=== PATIENT | female | born 1945 | race Caucasian/White ===

== ENCOUNTER 2021-07-19 09:05 | Emergency (ER) | payer MEDICARE, BC ==
[2021-07-19] MEDS ORDERED: Sodium Chloride 0.9% 10 ML Syringe FLUSH PRN ×2 (09:17→09:26)
[2021-07-19] MEDS ORDERED: Ondansetron 4 MG/2 ML SDV IVPUSH ONE (09:17)
[2021-07-19] MEDS ORDERED: HYDROmorphone 0.5 MG/0.5 ML Syringe IVPUSH ONE ×2 (09:18→12:07)
[2021-07-19] MEDS ORDERED: Iopamidol 612 MG/ML 100 ML Bottle IVPUSH ONE (09:26)
[2021-07-19] MEDS ORDERED: Diatrizoate Meglumine/Diatrizoate Sodium 37% 120 ML Bottle PO ONE (09:26)
[2021-07-19] MEDS ORDERED: Sodium Chloride 0.9% 1,000 ML IV SCH (09:30)
--- NOTE | 2021-07-19 10:01 | EDM.PDOC ---
ED HPI GENERAL MEDICAL PROBLEM - General Chief Complaint: Abdominal Pain Stated Complaint: [facility] Time Seen by Provider: 07/19/21 09:08 Source of Information: Reports: Patient, EMS History Limitations: Reports: No Limitations - History of Present Illness INITIAL COMMENTS - FREE TEXT/NARRATIVE: The patient presents by [facility] with intercept by [facility] for lower abdominal pain. The patient said she woke up feeling fine. She went to the bathroom and started having dysuria and then she developed lower abdominal pain. She has no nausea or vomiting. She has some diarrhea but that is normal for her. She has no fever, chills, cough, chest pain, or shortness of breath. She still has her appendix and gallbladder. EMS gave her 25mcg IV of f entanyl. Onset: Sudden Duration: Hour(s): Location: Reports: Abdomen Quality: Reports: Sharp Severity: Moderate Improves with: Reports: None Worsens with: Reports: None Associated Symptoms: Reports: No Other Symptoms Bilateral Lower Abdomen Pain Score (Numeric/FACES): 6 - Related Data Allergies Allergy/AdvReac Type Severity Reaction Status Date / Time cephalexin [From Keflex] Allergy Severe Facial Verified 07/19/21 09:19 Swelling Penicillins Allergy Intermediate Hives Verified 07/19/21 11:35 Home Meds: Home Meds Aspirin [Halfprin] 81 mg PO QAM 07/19/21 [History] Budesonide [Budesonide EC] 9 mg PO QAM 07/19/21 [History] Calcium Carbonate [Calcium] 500 mg PO QAM 07/19/21 [History] Cholecalciferol (Vitamin D3) [Vitamin D3] 6,000 units PO QAM 07/19/21 [History] Latanoprost 1 drop EYEBOTH QA 07/19/21 [History] Olmesartan Medoxomil [Benicar] 20 mg PO QAM 07/19/21 [History] Simvastatin 40 mg PO QPM 07/19/21 [History] Timolol [Betimol] 1 drop EYEBOTH QA 07/19/21 [History] Vitamin B Complex 1 cap PO QAM 07/19/21 [History] ED ROS GENERAL - Review of Systems Review Of Systems: See Below Constitutional: Reports: No Symptoms HEENT: Reports: No Symptoms Respiratory: Reports: No Symptoms Cardiovascular: Reports: No Symptoms Endocrine: Reports: No Symptoms GI/Abdominal: Reports: Abdominal Pain, Diarrhea. Denies: Nausea, Vomiting : Reports: No Symptoms Musculoskeletal: Reports: No Symptoms ED EXAM, GI/ABD - Physical Exam Exam: See Below Exam Limited By: No Limitations General Appearance: Alert, No Apparent Distress Ears: Normal External Exam Nose: Normal Inspection Head: Atraumatic, Normocephalic Neck: Normal Inspection Respiratory/Chest: No Respiratory Distress, Lungs Clear, Normal Breath Sounds Cardiovascular: Regular Rate, Rhythm, No Edema, No Murmur GI/Abdominal Exam: Soft, No Organomegaly, No Mass, Tender (Moderate generalized tenderness) Course - Vital Signs Last Recorded V/S: Last Vital Signs Temp 96.9 F 07/19/21 09:10 Pulse 73 07/19/21 09:10 Resp 18 07/19/21 09:10 BP 177/85 H 07/19/21 09:10 Pulse Ox 98 07/19/21 09:10 - Orders/Labs/Meds Orders: Active Orders 24 hr Category Date Time Status Peripheral IV Care [RC] . DIRECTED Care 07/19/21 09:17 Active CORONAVIRUS COVID-19 SHARMILA [MOLEC] Stat Lab 07/19/21 12:09 Ordered CULTURE URINE [MREF] Stat Lab 07/19/21 11:50 Ordered Levofloxacin/Dextrose 5%-Water [Levaquin in D5W 500 MG/ Med 07/19/21 12:00 Active 100 ML] 500 mg Premix Bag 1 bag IV ONETIME Sodium Chloride 0.9% [Normal Saline] 1,000 ml Med 07/19/21 09:30 Active IV ASDIRECTED Sodium Chloride 0.9% [Saline Flush] Med 07/19/21 09:17 Active 10 ml FLUSH ASDIRECTED PRN Sodium Chloride 0.9% [Saline Flush] Med 07/19/21 09:26 Active 10 ml FLUSH ONETIME PRN metroNIDAZOLE/Normal Saline [Flagyl in NS 500 MG/100 ML Med 07/19/21 12:00 Active ] 500 mg Premix Bag 1 bag IV ONETIME ED Antiemetic Medication Reflex [OM.PC] Stat Oth 07/19/21 09:17 Ordered Peripheral IV Insertion Adult [OM.PC] Stat Oth 07/19/21 09:17 Ordered Medication Orders Sodium Chloride (Normal Saline) 1,000 mls @ 125 mls/hr IV ASDIRECTED BRANDON Last Admin: 07/19/21 09:30 Dose: 125 mls/hr Documented by: MAGGIE Metronidazole 500 mg/ Premix 100 mls @ 100 mls/hr IV ONETIME ONE Stop: 07/19/21 12:59 Levofloxacin/Dextrose 500 mg/ (Premix) 100 mls @ 100 mls/hr IV ONETIME ONE Stop: 07/19/21 12:59 Sodium Chloride (Sodium Chloride 0.9% 10 Ml Syringe) 10 ml FLUSH ASDIRECTED PRN PRN Reason: Keep Vein Open Last Admin: 07/19/21 09:31 Dose: 10 ml Documented by: JUANITA Sodium Chloride (Sodium Chloride 0.9% 10 Ml Syringe) 10 ml FLUSH ONETIME PRN PRN Reason: IV FLUSH Last Admin: 07/19/21 11:09 Dose: 10 ml Documented by: VIRGIL Labs: Laboratory Tests 07/19/21 07/19/21 07/19/21 Range/Units 09:45 10:20 10:20 WBC 6.85 (3.98-10.04) K/mm3 RBC 4.13 (3.98-5.22) M/mm3 Hgb 13.3 (11.2-15.7) gm/dl Hct 41.3 (34.1-44.9) % MCV 100.0 H (79.4-94.8) fl MCH 32.2 (25.6-32.2) pg MCHC 32.2 (32.2-35.5) g/dl RDW Std Deviation 54.3 H (36.4-46.3) fL Plt Count 241 (182-369) K/mm3 MPV 9.1 L (9.4-12.3) fl Neut % (Auto) 82.5 H (34.0-71.1) % Lymph % (Auto) 14.5 L (19.3-51.7) % Park % (Auto) 2.6 L (4.7-12.5) % Eos % (Auto) 0.3 L (0.7-5.8) Baso % (Auto) 0.0 L (0.1-1.2) % Neut # (Auto) 5.65 (1.56-6.13) K/mm3 Lymph # (Auto) 0.99 L (1.18-3.74) K/mm3 Park # (Auto) 0.18 L (0.24-0.36) K/mm3 Eos # (Auto) 0.02 L (0.04-0.36) K/mm3 Baso # (Auto) 0.00 L (0.01-0.08) K/mm3 Sodium 139 (136-145) mEq/L Potassium 3.1 L (3.5-5.1) mEq/L Chloride 105 (98-107) mEq/L Carbon Dioxide 20 L (21-32) mEq/L Anion Gap 17.1 H (5-15) BUN 16 (7-18) mg/dL Creatinine 0.7 (0.55-1.02) mg/dL Est Cr Clr Drug Dosing 53.21 mL/min Estimated GFR (MDRD) > 60 (>60) mL/min BUN/Creatinine Ratio 22.9 H (14-18) Glucose 95 (70-99) mg/dL Calcium 8.7 (8.5-10.1) mg/dL Total Bilirubin 0.7 (0.2-1.0) mg/dL AST 24 (15-37) U/L ALT 45 (14-59) U/L Alkaline Phosphatase 73 (46-116) U/L Total Protein 6.6 (6.4-8.2) g/dl Albumin 3.6 (3.4-5.0) g/dl Globulin 3.0 gm/dL Albumin/Globulin Ratio 1.2 (1-2) Lipase 93 (73-393) U/L Urine Color Shama H (Yellow) Urine Appearance Cloudy H (Clear) Urine pH 6.0 (5.0-8.0) Ur Specific [place] 1.020 (1.005-1.030) Urine Protein 2+ H (Negative) Urine Glucose (UA) Negative (Negative) Urine Ketones Trace H (Negative) Urine Occult Blood Trace-intact H (Negative) Urine Nitrite Positive H (Negative) Urine Bilirubin 1+ H (Negative) Urine Urobilinogen 1.0 (0.2-1.0) Ur Leukocyte Esterase 2+ H (Negative) Urine RBC 0-5 (0-5) /hpf Urine WBC >100 H (0-5) /hpf Ur Epithelial Cells 0-5 (0-5) /hpf Urine Bacteria Few (FEW) /hpf Urine Mucus Few (FEW) /hpf Meds: Medications Generic Name Dose Route Start Last Admin Trade Name Christina PRN Reason Stop Dose Admin Sodium Chloride 1,000 mls @ 125 mls/hr 07/19/21 09:30 07/19/21 09:30 Normal Saline IV 125 mls/hr ASDIRECTED BRANDON Administration Metronidazole 500 mg/ Premix 100 mls @ 100 mls/hr 07/19/21 12:00 IV 07/19/21 12:59 ONETIME ONE Levofloxacin/Dextrose 500 mg/ 100 mls @ 100 mls/hr 07/19/21 12:00 Premix IV 07/19/21 12:59 ONETIME ONE Sodium Chloride 10 ml 07/19/21 09:17 07/19/21 09:31 Sodium Chloride 0.9% 10 Ml Syringe FLUSH 10 ml ASDIRECTED PRN Administration Keep Vein Open Sodium Chloride 10 ml 07/19/21 09:26 07/19/21 11:09 Sodium Chloride 0.9% 10 Ml Syringe FLUSH 10 ml ONETIME PRN Administration IV FLUSH Discontinued Medications Generic Name Dose Route Start Last Admin Trade Name Christina PRN Reason Stop Dose Admin Diatrizoate Meglum/Diatrizoate Sod 120 ml 07/19/21 09:26 07/19/21 11:09 Diatrizoate Meglumine/Diatrizoate Sodium 37% 120 Ml Bottle PO 07/19/21 09:27 30 ml ONETIME ONE Administration Hydromorphone HCl 0.5 mg 07/19/21 09:18 07/19/21 09:31 Hydromorphone 0.5 Mg/0.5 Ml Syringe IVPUSH 07/19/21 09:19 0.5 mg ONETIME ONE Administration Hydromorphone HCl 0.5 mg 07/19/21 12:07 Hydromorphone 0.5 Mg/0.5 Ml Syringe IVPUSH 07/19/21 12:08 ONETIME ONE Iopamidol 100 ml 07/19/21 09:26 07/19/21 11:09 Iopamidol 612 Mg/Ml 100 Ml Bottle IVPUSH 07/19/21 09:27 100 ml ONETIME ONE Administration Ondansetron HCl 4 mg 07/19/21 09:17 07/19/21 09:31 Ondansetron 4 Mg/2 Ml Sdv IVPUSH 07/19/21 09:18 4 mg ONETIME ONE Administration - Re-Assessments/Exams Free Text/Narrative Re-Assessment/Exam: 07/19/21 10:00 I ordered an IV NS at 125mL/hr, zofran 4mg IV, dilaudid 0.5mg IV, labs, UA and a CT of her abdomen and pelvis with IV and oral contrast. 07/19/21 11:54 Her CBC looks good. Her K was low at 3.1. Her anion gap was elevated at 17.1. Her lipase was negative. Her UA shows a UTI. 07/19/21 12:[address] shows small amount of free air underneath the right hemidiaphragm. Gas dilated cecum suspicious for cecal volvulus. This may be the etiology of the free air. Dilated small bowel loops are seen. Diffuse wall thickening is seen within the duodenum and jejunum which could be vascular in etiology versus change from infection. I am told we have no beds right now and cannot accept the patient. I called [facility] in [place] and talked with Dr Scott the learning consultant surgeon and she accepted the patient. She did want levaquin and flagyl started. I have ordered them. Departure - Departure Time of Disposition: 12:20 Disposition: DC/Tfer to Acute Hospital 02 Condition: Serious Clinical Impression: Cecal volvulus, Perforated abdominal viscus - Discharge Information Referrals: Tatyana Lu MD [Primary Care Provider] - Forms: ED Department Discharge Sepsis Event Note (ED) - Evaluation Sepsis Screening Result: No Definite Risk - Focused Exam Vital Signs: Vital Signs Temp Pulse Resp BP Pulse Ox 07/19/21 09:10 96.9 F 73 18 177/85 H 98 - My Orders Last 24 Hours: My Active Orders 07/19/21 09:17 Peripheral IV Care [RC] . DIRECTED Sodium Chloride 0.9% [Saline Flush] 10 ml FLUSH ASDIRECTED PRN ED Antiemetic Medication Reflex [OM.PC] Stat Peripheral IV Insertion Adult [OM.PC] Stat 07/19/21 09:26 Sodium Chloride 0.9% [Saline Flush] 10 ml FLUSH ONETIME PRN 07/19/21 09:30 Sodium Chloride 0.9% [Normal Saline] 1,000 ml IV ASDIRECTED 07/19/21 11:50 CULTURE URINE [MREF] Stat 07/19/21 12:00 Levofloxacin/Dextrose 5%-Water [Levaquin in D5W 500 MG/100 ML] 500 mg Premix Bag 1 bag IV ONETIME metroNIDAZOLE/Normal Saline [Flagyl in NS 500 MG/100 ML] 500 mg Premix Bag 1 bag IV ONETIME 07/19/21 12:09 CORONAVIRUS COVID-19 SHARMILA [MOLEC] Stat - Assessment/Plan Last 24 Hours: My Active Orders 07/19/21 09:17 Peripheral IV Care [RC] . DIRECTED Sodium Chloride 0.9% [Saline Flush] 10 ml FLUSH ASDIRECTED PRN ED Antiemetic Medication Reflex [OM.PC] Stat Peripheral IV Insertion Adult [OM.PC] Stat 07/19/21 09:26 Sodium Chloride 0.9% [Saline Flush] 10 ml FLUSH ONETIME PRN 07/19/21 09:30 Sodium Chloride 0.9% [Normal Saline] 1,000 ml IV ASDIRECTED 07/19/21 11:50 CULTURE URINE [MREF] Stat 07/19/21 12:00 Levofloxacin/Dextrose 5%-Water [Levaquin in D5W 500 MG/100 ML] 500 mg Premix Bag 1 bag IV ONETIME metroNIDAZOLE/Normal Saline [Flagyl in NS 500 MG/100 ML] 500 mg Premix Bag 1 bag IV ONETIME 07/19/21 12:09 CORONAVIRUS COVID-19 SHARMILA [MOLEC] Stat
--- NOTE | 2021-07-19 11:42 | CT ---
CT abdomen and pelvis Technique: Multiple axial sections were obtained from above the dome of the diaphragm inferiorly through the pubic symphysis. Intravenous and oral contrast has been given. Delayed images were obtained through the pelvis. Reconstructed coronal and sagittal images were obtained. Comparison: No prior CT abdomen or pelvis study is available. Findings: There is a mild amount of free air being seen beneath the hemidiaphragm on the right side. Visualized lung bases show nothing acute. Liver contains no focal parenchymal abnormality. Contrast is noted within the distal esophagus compatible with reflux. Spleen size is normal. Adrenal glands show no nodule. Kidneys show symmetric contrast enhancement. Very small low density finding is noted within the left kidney measuring 5 mm which is most likely due to a small cyst. Abdominal aorta shows atherosclerotic change with no aneurysm. There is opacification of the celiac axis and superior mesenteric arteries without any evidence of focal occlusion. Inferior mesenteric artery is also patent. No retroperitoneal adenopathy is seen. No pelvic mass or adenopathy is seen. Pancreas appears within normal limits. There is prominent bowel wall thickening being seen within the duodenum and jejunum. More distal jejunum and ileum show mild dilatation. There is air being seen within the wall of the thickened jejunum compatible with disruption of the bowel wall. Cecum lies within the right upper abdomen. Slight inflammatory change is seen. Findings are suggestive of a mild cecal volvulus. Cecum is gas-filled and dilated up to 8.3 cm. Appendix is not visualized. There may be perforation of the cecum given the free air. Diffuse diverticuli are seen throughout the colon without findings of diverticulitis. Delayed images show contrast within the distal ureters and bladder. Right hip pinning is noted. Mild degenerative change is seen within the spine most prominent at L3-4. Impression: 1. Small amount of free air underneath the right hemidiaphragm. 2. Gas dilated cecum suspicious for cecal volvulus. This may be the etiology of the free air. 3. Dilated small bowel loops are seen. Diffuse wall thickening is seen within the duodenum and jejunum which could be vascular in etiology versus change from infection. Diagnostic code #5
[2021-07-19] MEDS ORDERED: metroNIDAZOLE/Normal Saline 500 MG in Premix Bag 1 BAG IV ONE (12:00)
[2021-07-19] MEDS ORDERED: Levofloxacin/Dextrose 5%-Water 500 MG in Premix Bag 1 BAG IV ONE (12:00)
[2021-07-19] MEDS ORDERED: fentaNYL 100 MCG/2 ML SDV ONE (12:31)
[2021-07-19] MEDS ORDERED: fentaNYL 100 MCG/2 ML SDV IVPUSH ONE (12:31)
== END 2021-07-19 12:45 ==
LOC: JD.ED 09:05
DX: K56.2 Volvulus (principal); Z88.0 Allergy status to penicillin; Z88.1 Allergy status to other antibiotic agents; Z79.82 Long term (current) use of aspirin; Z79.899 Other long term (current) drug therapy; Z20.822 Contact with and (suspected) exposure to COVID-19
CPT/HCPCS: 36415; 74177; 74177-26; 80053; 81001; 83690; 85025; 87086; 87088; 87186; 96365; 96368; 96375; 96376; 99284; 99285-25; J1170; J1956; J2405; J3010; J3490; J7030; Q9963; Q9967; U0002

== ENCOUNTER 2021-11-10 15:32 | Inpatient (IN) | payer MEDICARE, BC ==
[2021-11-10] MEDS ORDERED: Docusate Sodium 100 MG Cap PO PRN (16:25)
[2021-11-10] MEDS ORDERED: Ondansetron 4 MG Tab.DIS PO PRN (16:25)
--- NOTE | 2021-11-10 16:42 | PCM.HP.2 ---
H&P History of Present Illness - General Date of Service: 11/10/21 Admit Problem/Dx: Admission Diagnosis/Problem Admission Diagnosis/Problem Dehydration Source of Information: Patient History Limitations: Reports: No Limitations - History of Present Illness Initial Comments - Free Text/Narative: The patient was seen in my office today for a routine visit for colostomy rever jose a. She complained that she has been fatigues. [place] I obtained CBC and chemistry. She reported that her colostomy output has been liquid for a few days. No fevers or chills. CMP : Glu 151, BUN 37, Creat 2.35, Na 132, K 5.2, Cl 102, CO2 15, AG 22, Calc 11.3, Tprot 7.9, Alb 4.8, Ast 66, ALT 86, Tbili 0.6. CBC: WBC 10.2, Hgb 16.5, Plat 125 Looking back in Aug 03, 2021, her creat was 0.66. Due to PIOTR and dehydration i asked that she be admitted for hydration. Onset of Symptoms: Reports: Gradual Duration of Symptoms: Reports: Day(s): (7) Location: Reports: Abdomen Improves with: Reports: None Worsens with: Reports: None Context: Reports: Sick Contact Associated Symptoms: Reports: Loss of Appetite - Related Data Allergies/Adverse Reactions: Allergies Allergy/AdvReac Type Severity Reaction Status Date / Time cephalexin [From Keflex] Allergy Severe Facial Verified 07/19/21 09:19 Swelling Penicillins Allergy Intermediate Hives Verified 07/19/21 11:35 Home Medications: Home Meds Aspirin [Halfprin] 81 mg PO QAM 07/19/21 [History] Budesonide [Budesonide EC] 9 mg PO QAM 07/19/21 [History] Calcium Carbonate [Calcium] 500 mg PO QAM 07/19/21 [History] Cholecalciferol (Vitamin D3) [Vitamin D3] 6,000 units PO QAM 07/19/21 [History] Latanoprost 1 drop EYEBOTH QAM 07/19/21 [History] Olmesartan Medoxomil [Benicar] 20 mg PO QAM 07/19/21 [History] Simvastatin 40 mg PO QPM 07/19/21 [History] Timolol [Betimol 0.25% O/S 5 ML] 1 drop EYEBOTH QAM 07/19/21 [History] Vitamin B Complex 1 cap PO [facility] 07/19/21 [History] Past Medical History HEENT History: Reports: Cataract, Glaucoma Gastrointestinal History: Reports: Diverticulosis, Inflammatory Bowel Disease Musculoskeletal History: Reports: None Psychiatric History: Reports: Depression Other Psychiatric History: Hx of it years ago Hematologic History: Reports: Anemia - Infectious Disease History Infectious Disease History: Reports: Chicken Pox, Measles - Past Surgical History HEENT Surgical History: Reports: Cataract Surgery, Laser Surgery Other HEENT Surgeries/Procedures: Cataract and glaucoma surgeries [id number] GI Surgical History: Reports: Colostomy Other GI Surgeries/Procedures: Ostomy placed Jul 2021 Female Surgical History: Reports: Tubal Ligation Other Female Surgeries/Procedures: 30 plus years ago Other Musculoskeletal Surgeries/Procedures:: Right femur fracture with jon placement 2014 Social & Family History - Family History HEENT: Reports: None Cardiac: Reports: Hypertension Other Cardiac Family History: Mother had multiple stroke and HTN. Father had HTN - Tobacco Use Tobacco Use Status *Q: Former Tobacco User Years of Tobacco use: 30 Used Tobacco, but Quit: Yes Month/Year Tobacco Last Used: 6 yrs ago Second Hand Smoke Exposure: No - Caffeine Use Caffeine Use: Reports: Coffee - Alcohol Use Days Per Week of Alcohol Use: 7 Number of Drinks Per Day: 1 Total Drinks Per Week: 7 Date of Last Drink: 11/09/21 Time of Last Drink: 21:00 - Recreational Drug Use Recreational Drug Use: No H&P Review of Systems - Review of Systems: Review Of Systems: See Below General: Reports: No Symptoms HEENT: Reports: No Symptoms Pulmonary: Reports: No Symptoms Cardiovascular: Reports: No Symptoms Gastrointestinal: Reports: No Symptoms Genitourinary: Reports: No Symptoms Musculoskeletal: Reports: No Symptoms Skin: Reports: No Symptoms Psychiatric: Reports: No Symptoms Review of Systems Comment:: Fatigue Exam - Exam Exam: See Below - Vital Signs Vital Signs: Last Vital Signs Temp 97.5 F 11/10/21 15:46 Pulse 102 H 11/10/21 15:46 Resp 12 11/10/21 15:46 BP 120/40 L 11/10/21 15:46 Pulse Ox 99 11/10/21 15:46 Weight: 60.6 kg - Exam General: Alert, Oriented, Cooperative Lungs: Clear to Auscultation, Normal Respiratory Effort Cardiovascular: Regular Rhythm, Normal S1, Normal S2, Tachycardia GI/Abdominal Exam: Normal Bowel Sounds, Soft, Non-Tender Sepsis Event Note - Focused Exam Vital Signs: Vital Signs Temp Pulse Resp BP Pulse Ox 11/10/21 15:46 97.5 F 102 H 12 120/40 L 99 Problem List Initiated/Reviewed/Updated: No Orders Last 24hrs: Active Orders 24 hr Category Date Time Status Patient Status [ADT] Routine ADT 11/10/21 16:18 Ordered Antiembolic Devices [RC] PER UNIT ROUTINE Care 11/10/21 16:30 Ordered Intake and Output [RC] Q4HR Care 11/10/21 16:20 Ordered Oxygen Therapy [RC] PRN Care 11/10/21 16:18 Ordered Up ad Pamella [RC] ASDIRECTED Care 11/10/21 16:18 Ordered VTE/DVT Education [RC] PER UNIT ROUTINE Care 11/10/21 16:18 Ordered Vital Signs [RC] Q4H Care 11/10/21 16:18 Ordered Regular Diet [DIET] Diet 11/10/21 Dinner Ordered BASIC METABOLIC PANEL,BMP [CHEM] AM Lab 11/11/21 05:11 Ordered BASIC METABOLIC PANEL,BMP [CHEM] AM Lab 11/12/21 05:11 Ordered BASIC METABOLIC PANEL,BMP [CHEM] AM Lab 11/13/21 05:11 Ordered BASIC METABOLIC PANEL,BMP [CHEM] AM Lab 11/14/21 05:11 Ordered BASIC METABOLIC PANEL,BMP [CHEM] AM Lab 11/15/21 05:11 Ordered CBC WITH AUTO DIFF [HEME] AM Lab 11/11/21 05:11 Ordered CBC WITH AUTO DIFF [HEME] AM Lab 11/12/21 05:11 Ordered CBC WITH AUTO DIFF [HEME] AM Lab 11/13/21 05:11 Ordered CORONAVIRUS COVID-19 SHARMILA [MOLEC] Stat Lab 11/10/21 16:25 Ordered MAGNESIUM [CHEM] AM Lab 11/11/21 05:11 Ordered MAGNESIUM [CHEM] AM Lab 11/12/21 05:11 Ordered MAGNESIUM [CHEM] AM Lab 11/13/21 05:11 Ordered MAGNESIUM [CHEM] AM Lab 11/14/21 05:11 Ordered MAGNESIUM [CHEM] AM Lab 11/15/21 05:11 Ordered PHOSPHORUS [CHEM] AM Lab 11/11/21 05:11 Ordered PHOSPHORUS [CHEM] AM Lab 11/12/21 05:11 Ordered PHOSPHORUS [CHEM] AM Lab 11/13/21 05:11 Ordered PHOSPHORUS [CHEM] AM Lab 11/14/21 05:11 Ordered PHOSPHORUS [CHEM] AM Lab 11/15/21 05:11 Ordered Acetaminophen [TylenoL] Med 11/10/21 16:25 Ordered 650 mg PO Q4H PRN Docusate Sodium [Colace] Med 11/10/21 16:25 Ordered 100 mg PO BID PRN Enoxaparin [Lovenox] Med 11/11/21 09:00 Ordered 40 mg SUBCUT DAILY Ondansetron [Zofran ODT] Med 11/10/21 16:25 Ordered 4 mg PO Q4H PRN Sodium Chloride 0.9% [Normal Saline] 1,000 ml Med 11/10/21 16:30 Ordered IV ASDIRECTED Sodium Chloride 0.9% [Normal Saline] 1,000 ml Med 11/10/21 16:45 Ordered IV ASDIRECTED Sequential Compression Device [OM.PC] Per Unit Routine Oth 11/10/21 16:20 Ordered Resuscitation Status Routine Resus Stat 11/10/21 16:18 Ordered Medication Orders Acetaminophen (Acetaminophen 325 Mg Tab) 650 mg PO Q4H PRN PRN Reason: Pain (Mild 1-3)/fever Docusate Sodium (Docusate Sodium 100 Mg Cap) 100 mg PO BID PRN PRN Reason: Constipation Enoxaparin Sodium (Enoxaparin 40 Mg/0.4 Ml Syringe) 40 mg SUBCUT DAILY BRANDON Sodium Chloride (Normal Saline) 1,000 mls @ 150 mls/hr IV ASDIRECTED BRANDON Sodium Chloride (Normal Saline) 1,000 mls @ 500 mls/hr IV ASDIRECTED BRANDON Stop: 11/14/21 16:34 Ondansetron HCl (Ondansetron 4 Mg Tab.Dis) 4 mg PO Q4H PRN PRN Reason: nausea, able to take PO Assessment/Plan Comment:: Patient has PIOTR due to severe dehydration likely due to high colostomy output. - 1L NS bolus - IVF at 150cc/hr - Ok to eat reg diet - ok to ambulate - will monitor UOP and colostomy output - Mortality Measure Prognosis:: Good (Single organ failure)
[2021-11-10] MEDS ORDERED: Sodium Chloride 0.9% 1,000 ML IV SCH (16:45)
[2021-11-10] MEDS: Acetaminophen 325 MG Tab PO PRN (17:22)
[2021-11-10] MEDS: Sodium Chloride 0.9% 1,000 ML IV SCH (17:23)
[2021-11-10] MEDS: Simvastatin 40 MG Tab PO SCH (21:20)
[2021-11-10] MEDS: Latanoprost 0.005% Ophth Soln 2.5 ML Bottle EYEBOTH SCH (21:20)
[2021-11-11] MEDS: Sodium Chloride 0.9% 1,000 ML IV SCH ×3 (02:30→17:02)
[2021-11-11] MEDS ORDERED: Non-Formulary Medication 1 Each (Budesonide [Budesonide Ec] 3 MG Capdr...Er) PO SCH (08:00)
[2021-11-11] MEDS ORDERED: OLMESARTAN MEDOXOMIL 20 MG PO SCH (08:00)
[2021-11-11] MEDS: Aspirin 81 MG Tab.EC PO SCH (08:52)
[2021-11-11] MEDS: Losartan 50 MG Tab PO SCH (08:53)
[2021-11-11] MEDS: Enoxaparin 40 MG/0.4 ML Syringe SUBCUT SCH (08:55)
[2021-11-11] MEDS: Timolol Maleate 0.25% Ophth Soln 5 ML Bottle EYEBOTH SCH (09:05)
--- NOTE | 2021-11-11 10:49 | PCM.PN ---
- General Info Date of Service: 11/11/21 Admission Dx/Problem (Free Text): Admission Diagnosis/Problem Admission Diagnosis/Problem Dehydration Subjective Update: Patient is feeling a lit better. Her headache has resolved. Her heart rate is back to normal. No nausea or vomiting. Stool output is still watery. She urinated today for the first time in about a day. She denies any burning with urination. Feels weak Functional Status: Reports: Pain Controlled, Tolerating Diet, Ambulating, Urinating - Review of Systems General: Reports: No Symptoms HEENT: Reports: No Symptoms Pulmonary: Reports: No Symptoms Cardiovascular: Reports: No Symptoms Gastrointestinal: Reports: No Symptoms Genitourinary: Reports: No Symptoms Musculoskeletal: Reports: No Symptoms Skin: Reports: No Symptoms - Patient Data Vitals - Most Recent: Last Vital Signs Temp 98.2 F 11/11/21 04:12 Pulse 77 11/11/21 04:12 Resp 14 11/11/21 04:12 BP 123/87 11/11/21 08:53 Pulse Ox 98 11/11/21 04:12 Weight - Most Recent: 61.19 kg I&O - Last 24 Hours: Intake & Output 11/10/21 11/11/21 11/11/21 22:59 06:59 14:59 Intake Total 180 2527 Output Total 1125 Balance 180 1402 Lab Results Last 24 Hours: Laboratory Results - last 24 hr 11/10/21 11/11/21 11/11/21 Range/Units 17:30 05:30 05:30 WBC 7.00 (3.98-10.04) K/mm3 RBC 4.17 (3.98-5.22) M/mm3 Hgb 13.2 (11.2-15.7) gm/dl Hct 40.5 (34.1-44.9) % MCV 97.1 H (79.4-94.8) fl MCH 31.7 (25.6-32.2) pg MCHC 32.6 (32.2-35.5) g/dl RDW Std Deviation 47.2 H (36.4-46.3) fL Plt Count 102 L D (182-369) K/mm3 MPV 10.0 (9.4-12.3) fl Neut % (Auto) 43.3 (34.0-71.1) % Lymph % (Auto) 44.3 (19.3-51.7) % [place] % (Auto) 10.0 (4.7-12.5) % Eos % (Auto) 1.7 (0.7-5.8) Baso % (Auto) 0.6 (0.1-1.2) % Neut # (Auto) 3.03 (1.56-6.13) K/mm3 Lymph # (Auto) 3.10 (1.18-3.74) K/mm3 [place] # (Auto) 0.70 H (0.24-0.36) K/mm3 Eos # (Auto) 0.12 (0.04-0.36) K/mm3 Baso # (Auto) 0.04 (0.01-0.08) K/mm3 Sodium 139 (136-145) mEq/L Potassium 3.7 (3.5-5.1) mEq/L Chloride 107 (98-107) mEq/L Carbon Dioxide 18 L (21-32) mEq/L Anion Gap 17.7 H (5-15) BUN 34 H (7-18) mg/dL Creatinine 1.8 H (0.55-1.02) mg/dL Est Cr Clr Drug Dosing 20.69 mL/min Estimated GFR (MDRD) 28 (>60) mL/min BUN/Creatinine Ratio 18.9 H (14-18) Glucose 89 (70-99) mg/dL Calcium 8.5 (8.5-10.1) mg/dL Phosphorus 4.2 (2.6-4.7) mg/dL Magnesium 1.9 (1.8-2.4) mg/dL SARS-CoV-2 RNA (SHARMILA) Negative (NEGATIVE) Med Orders - Current: Current Medications Acetaminophen (Acetaminophen 325 Mg Tab) 650 mg PO Q4H PRN PRN Reason: Pain (Mild 1-3)/fever Last Admin: 11/10/21 17:22 Dose: 650 mg Documented by: Aspirin (Aspirin 81 Mg Tab.Ec) 81 mg PO QAM [facility] Last Admin: 11/11/21 08:52 Dose: 81 mg Documented by: Docusate Sodium (Docusate Sodium 100 Mg Cap) 100 mg PO BID PRN PRN Reason: Constipation Last Admin: 11/10/21 17:22 Dose: 100 mg Documented by: Enoxaparin Sodium (Enoxaparin 40 Mg/0.4 Ml Syringe) 40 mg SUBCUT DAILY [facility] Last Admin: 11/11/21 08:55 Dose: 40 mg Documented by: Sodium Chloride (Normal Saline) 1,000 mls @ 150 mls/hr IV ASDIRECTED [facility] Last Admin: 11/11/21 09:35 Dose: 150 mls/hr Documented by: Latanoprost (Latanoprost 0.005% Ophth Soln 2.5 Ml Bottle) 0 ml EYEBOTH BEDTIME [facility] Last Admin: 11/10/21 21:20 Dose: 1 drop Documented by: Losartan Potassium (Losartan 50 Mg Tab) 50 mg PO DAILY [facility] Last Admin: 11/11/21 08:53 Dose: 50 mg Documented by: Non-Formulary Medication (Budesonide [Budesonide Ec]) 9 mg PO QAM [facility] Ondansetron HCl (Ondansetron 4 Mg Tab.Dis) 4 mg PO Q4H PRN PRN Reason: nausea, able to take PO Last Admin: 11/10/21 17:22 Dose: 4 mg Documented by: Simvastatin (Simvastatin 40 Mg Tab) 40 mg PO BEDTIME [facility] Last Admin: 11/10/21 21:20 Dose: 40 mg Documented by: Timolol Maleate (Timolol Maleate 0.25% Ophth Soln 5 Ml Bottle) 0 ml EYEBOTH QAM [facility] Last Admin: 11/11/21 09:05 Dose: 1 drop Documented by: Discontinued Medications Sodium Chloride (Normal Saline) 1,000 mls @ 500 mls/hr IV ASDIRECTED [facility] Stop: 11/14/21 16:34 Last Admin: 11/10/21 17:50 Dose: 500 mls/hr Documented by: - Exam Quality Assessment: DVT Prophylaxis General: Alert, Oriented, Cooperative Lungs: Normal Respiratory Effort Cardiovascular: Regular Rate, Regular Rhythm GI/Abdominal Exam: Soft, Non-Tender, Other (watery colostomy output) - Patient Data Lab Results Last 24 hrs: Laboratory Results - last 24 hr 11/10/21 11/11/21 11/11/21 Range/Units 17:30 05:30 05:30 WBC 7.00 (3.98-10.04) K/mm3 RBC 4.17 (3.98-5.22) M/mm3 Hgb 13.2 (11.2-15.7) gm/dl Hct 40.5 (34.1-44.9) % MCV 97.1 H (79.4-94.8) fl MCH 31.7 (25.6-32.2) pg MCHC 32.6 (32.2-35.5) g/dl RDW Std Deviation 47.2 H (36.4-46.3) fL Plt Count 102 L D (182-369) K/mm3 MPV 10.0 (9.4-12.3) fl Neut % (Auto) 43.3 (34.0-71.1) % Lymph % (Auto) 44.3 (19.3-51.7) % [place] % (Auto) 10.0 (4.7-12.5) % Eos % (Auto) 1.7 (0.7-5.8) Baso % (Auto) 0.6 (0.1-1.2) % Neut # (Auto) 3.03 (1.56-6.13) K/mm3 Lymph # (Auto) 3.10 (1.18-3.74) K/mm3 [place] # (Auto) 0.70 H (0.24-0.36) K/mm3 Eos # (Auto) 0.12 (0.04-0.36) K/mm3 Baso # (Auto) 0.04 (0.01-0.08) K/mm3 Sodium 139 (136-145) mEq/L Potassium 3.7 (3.5-5.1) mEq/L Chloride 107 (98-107) mEq/L Carbon Dioxide 18 L (21-32) mEq/L Anion Gap 17.7 H (5-15) BUN 34 H (7-18) mg/dL Creatinine 1.8 H (0.55-1.02) mg/dL Est Cr Clr Drug Dosing 20.69 mL/min Estimated GFR (MDRD) 28 (>60) mL/min BUN/Creatinine Ratio 18.9 H (14-18) Glucose 89 (70-99) mg/dL Calcium 8.5 (8.5-10.1) mg/dL Phosphorus 4.2 (2.6-4.7) mg/dL Magnesium 1.9 (1.8-2.4) mg/dL SARS-CoV-2 RNA (SHARMILA) Negative (NEGATIVE) Result Diagrams: 11/11/21 05:30 11/11/21 05:30 Sepsis Event Note - Evaluation Sepsis Screening Result: No Definite Risk - Focused Exam Vital Signs: Vital Signs Temp Pulse Resp BP BP Pulse Ox 11/11/21 08:53 123/87 11/11/21 04:12 98.2 F 77 14 106/65 98 - Problem List Review Problem List Initiated/Reviewed/Updated: No - My Orders Last 24 Hours: My Active Orders 11/10/21 16:18 Oxygen Therapy [RC] PRN Up ad [place] [RC] ASDIRECTED VTE/DVT Education [RC] PER UNIT ROUTINE Vital Signs [RC] 10,16,,04 Resuscitation Status Routine 11/10/21 16:20 Intake and Output [RC] 04,16 Sequential Compression Device [OM.PC] Per Unit Routine 11/10/21 16:25 Acetaminophen [TylenoL] 650 mg PO Q4H PRN Docusate Sodium [Colace] 100 mg PO BID PRN Ondansetron [Zofran ODT] 4 mg PO Q4H PRN 11/10/21 16:30 Antiembolic Devices [RC] PER UNIT ROUTINE Sodium Chloride 0.9% [Normal Saline] 1,000 ml IV ASDIRECTED 11/10/21 Dinner Regular Diet [DIET] 11/10/21 20:40 Patient Status [ADT] Routine 11/10/21 21:00 Latanoprost [Xalatan 0.005% Ophth Soln] 0 ml EYEBOTH BEDTIME Simvastatin [Zocor] 40 mg PO BEDTIME 11/11/21 08:00 Aspirin [Halfprin] 81 mg PO QAM Budesonide [Budesonide EC] 9 mg PO QAM timoloL maleate [Timoptic 0.25% Ophth Soln] 0 ml EYEBOTH QAM 11/11/21 09:00 Enoxaparin [Lovenox] 40 mg SUBCUT DAILY Losartan [Cozaar] 50 mg PO DAILY 11/11/21 10:42 calcium polycarbophiL [Fibercon] 1,250 mg PO TID 11/12/21 05:11 BASIC METABOLIC PANEL,BMP [CHEM] AM CBC WITH AUTO DIFF [HEME] AM MAGNESIUM [CHEM] AM PHOSPHORUS [CHEM] AM 11/13/21 05:11 BASIC METABOLIC PANEL,BMP [CHEM] AM CBC WITH AUTO DIFF [HEME] AM MAGNESIUM [CHEM] AM PHOSPHORUS [CHEM] AM 11/14/21 05:11 BASIC METABOLIC PANEL,BMP [CHEM] AM MAGNESIUM [CHEM] AM PHOSPHORUS [CHEM] AM 11/15/21 05:11 BASIC METABOLIC PANEL,BMP [CHEM] AM MAGNESIUM [CHEM] AM PHOSPHORUS [CHEM] AM - Assessment Assessment:: HD1 for ДМИТРИЙ due to severe dehydration secondary to high ileostomy output. She denies any illness or any recent antibiotics therapy. Her Дмитрий is resolving. Electrolytes are normalizing - Plan Plan:: Plan - continue IVF at 150cc/hr for until 6PM then reduce the rate to 125cc/hr - continue to encourage PO intake - Will start fibercorn supplementation today to see if we can thicken colostomy output - Encourage ambulation - I discussed with the patient that she will need to drink plenty of fluids at home to keep up with fluid losses. She understands.
[2021-11-11] MEDS: Calcium Polycarbophil 625 MG Tab PO SCH ×3 (11:18→21:00)
[2021-11-11] MEDS: Latanoprost 0.005% Ophth Soln 2.5 ML Bottle EYEBOTH SCH (20:59)
[2021-11-11] MEDS: Acetaminophen 325 MG Tab PO PRN (21:01)
[2021-11-11] MEDS: Simvastatin 40 MG Tab PO SCH (21:01)
[2021-11-12] MEDS: Sodium Chloride 0.9% 1,000 ML IV SCH ×2 (01:32→09:34)
[2021-11-12] MEDS ORDERED: Aluminum Hydroxide/Magnesium Hydroxide/Simethicone Susp 30 ML Cup PO PRN (01:38)
[2021-11-12] MEDS: Timolol Maleate 0.25% Ophth Soln 5 ML Bottle EYEBOTH SCH (09:00)
[2021-11-12] MEDS: Losartan 50 MG Tab PO SCH (09:34)
[2021-11-12] MEDS: Calcium Polycarbophil 625 MG Tab PO SCH ×4 (09:37→20:46)
[2021-11-12] MEDS: Aspirin 81 MG Tab.EC PO SCH (09:37)
[2021-11-12] MEDS ORDERED: Atropine/Diphenoxylate 0.025-2.5 MG Tab PO SCH (10:30)
--- NOTE | 2021-11-12 10:38 | PCM.PN ---
- General Info Date of Service: 11/12/21 Admission Dx/Problem (Free Text): Admission Diagnosis/Problem Admission Diagnosis/Problem Dehydration Subjective Update: Patient is doing better now. No nausea or vomiting. She is still fatigued but better. Functional Status: Reports: Pain Controlled, Tolerating Diet, Ambulating, Urinating - Review of Systems General: Reports: No Symptoms HEENT: Reports: No Symptoms Pulmonary: Reports: No Symptoms Cardiovascular: Reports: No Symptoms Gastrointestinal: Reports: No Symptoms Genitourinary: Reports: No Symptoms Musculoskeletal: Reports: No Symptoms - Patient Data Vitals - Most Recent: Last Vital Signs Temp 98.8 F 11/12/21 01:40 Pulse 70 11/12/21 01:40 Resp 14 11/12/21 01:40 BP 124/67 11/12/21 09:34 Pulse Ox 98 11/12/21 01:40 Weight - Most Recent: 65.408 kg I&O - Last 24 Hours: Intake & Output 11/11/21 11/12/21 11/12/21 22:59 06:59 14:59 Intake Total 2980 1650 Output Total 1050 1550 Balance 1930 100 Lab Results Last 24 Hours: Laboratory Results - last 24 hr 11/12/21 11/12/21 Range/Units 05:57 05:57 WBC 4.87 (3.98-10.04) K/mm3 RBC 3.80 L (3.98-5.22) M/mm3 Hgb 11.7 D (11.2-15.7) gm/dl Hct 37.6 (34.1-44.9) % MCV 98.9 H (79.4-94.8) fl MCH 30.8 (25.6-32.2) pg MCHC 31.1 L (32.2-35.5) g/dl RDW Std Deviation 48.0 H (36.4-46.3) fL Plt Count 88 L (182-369) K/mm3 MPV 9.8 (9.4-12.3) fl Neut % (Auto) 36.7 (34.0-71.1) % Lymph % (Auto) 49.3 (19.3-51.7) % [place] % (Auto) 10.7 (4.7-12.5) % Eos % (Auto) 2.5 (0.7-5.8) Baso % (Auto) 0.6 (0.1-1.2) % Neut # (Auto) 1.79 (1.56-6.13) K/mm3 Lymph # (Auto) 2.40 (1.18-3.74) K/mm3 [place] # (Auto) 0.52 H (0.24-0.36) K/mm3 Eos # (Auto) 0.12 (0.04-0.36) K/mm3 Baso # (Auto) 0.03 (0.01-0.08) K/mm3 Manual Slide Review Normal smear Sodium 143 (136-145) mEq/L Potassium 4.1 (3.5-5.1) mEq/L Chloride 113 H (98-107) mEq/L Carbon Dioxide 18 L (21-32) mEq/L Anion Gap 16.1 H (5-15) BUN 16 (7-18) mg/dL Creatinine 0.8 (0.55-1.02) mg/dL Est Cr Clr Drug Dosing 46.55 mL/min Estimated GFR (MDRD) > 60 (>60) mL/min BUN/Creatinine Ratio 20.0 H (14-18) Glucose 79 (70-99) mg/dL Calcium 8.4 L (8.5-10.1) mg/dL Phosphorus 3.2 (2.6-4.7) mg/dL Magnesium 1.8 (1.8-2.4) mg/dL Med Orders - Current: Current Medications Acetaminophen (Acetaminophen 325 Mg Tab) 650 mg PO Q4H PRN PRN Reason: Pain (Mild 1-3)/fever Last Admin: 11/11/21 21:01 Dose: 650 mg Documented by: Al Hydroxide/Mg Hydroxide (Aluminum Hydroxide/Magnesium Hydroxide/Simethicone Susp 30 Ml Cup) 30 ml PO Q4H PRN PRN Reason: Heartburn Last Admin: 11/12/21 01:45 Dose: 30 ml Documented by: Aspirin (Aspirin 81 Mg Tab.Ec) 81 mg PO QAM [facility] Last Admin: 11/12/21 09:37 Dose: 81 mg Documented by: Calcium Polycarbophil (Calcium Polycarbophil 625 Mg Tab) 1,250 mg PO TID [facility] Last Admin: 11/12/21 09:37 Dose: 1,250 mg Documented by: Diphenoxylate HCl/Atropine (Atropine/Diphenoxylate 0.025-2.5 Mg Tab) 1 tab PO Q8H [facility] Docusate Sodium (Docusate Sodium 100 Mg Cap) 100 mg PO BID PRN PRN Reason: Constipation Last Admin: 11/10/21 17:22 Dose: 100 mg Documented by: Enoxaparin Sodium (Enoxaparin 40 Mg/0.4 Ml Syringe) 40 mg SUBCUT DAILY [facility] Last Admin: 11/11/21 08:55 Dose: 40 mg Documented by: Latanoprost (Latanoprost 0.005% Ophth Soln 2.5 Ml Bottle) 0 ml EYEBOTH BEDTIME [facility] Last Admin: 11/11/21 20:59 Dose: 1 drop Documented by: Losartan Potassium (Losartan 50 Mg Tab) 50 mg PO DAILY [facility] Last Admin: 11/12/21 09:34 Dose: 50 mg Documented by: Non-Formulary Medication (Budesonide [Budesonide Ec]) 9 mg PO QAM [facility] Ondansetron HCl (Ondansetron 4 Mg Tab.Dis) 4 mg PO Q4H PRN PRN Reason: nausea, able to take PO Last Admin: 11/10/21 17:22 Dose: 4 mg Documented by: Simvastatin (Simvastatin 40 Mg Tab) 40 mg PO BEDTIME [facility] Last Admin: 11/11/21 21:01 Dose: 40 mg Documented by: Timolol Maleate (Timolol Maleate 0.25% Ophth Soln 5 Ml Bottle) 0 ml EYEBOTH QAM [facility] Last Admin: 11/11/21 09:05 Dose: 1 drop Documented by: Discontinued Medications Sodium Chloride (Normal Saline) 1,000 mls @ 150 mls/hr IV ASDIRECTED [facility] Last Admin: 11/11/21 17:02 Dose: 150 mls/hr Documented by: Sodium Chloride (Normal Saline) 1,000 mls @ 500 mls/hr IV ASDIRECTED [facility] Stop: 11/14/21 16:34 Last Admin: 11/10/21 17:50 Dose: 500 mls/hr Documented by: Sodium Chloride (Normal Saline) 1,000 mls @ 125 mls/hr IV ASDIRECTED [facility] Last Admin: 11/12/21 09:34 Dose: 125 mls/hr Documented by: - Exam General: Alert, Oriented, Cooperative Cardiovascular: Regular Rate, Regular Rhythm GI/Abdominal Exam: Soft, Non-Tender, No Distention, Other (Colostomy output is still watery today.) - Patient Data Lab Results Last 24 hrs: Laboratory Results - last 24 hr 11/12/21 11/12/21 Range/Units 05:57 05:57 WBC 4.87 (3.98-10.04) K/mm3 RBC 3.80 L (3.98-5.22) M/mm3 Hgb 11.7 D (11.2-15.7) gm/dl Hct 37.6 (34.1-44.9) % MCV 98.9 H (79.4-94.8) fl MCH 30.8 (25.6-32.2) pg MCHC 31.1 L (32.2-35.5) g/dl RDW Std Deviation 48.0 H (36.4-46.3) fL Plt Count 88 L (182-369) K/mm3 MPV 9.8 (9.4-12.3) fl Neut % (Auto) 36.7 (34.0-71.1) % Lymph % (Auto) 49.3 (19.3-51.7) % [place] % (Auto) 10.7 (4.7-12.5) % Eos % (Auto) 2.5 (0.7-5.8) Baso % (Auto) 0.6 (0.1-1.2) % Neut # (Auto) 1.79 (1.56-6.13) K/mm3 Lymph # (Auto) 2.40 (1.18-3.74) K/mm3 [place] # (Auto) 0.52 H (0.24-0.36) K/mm3 Eos # (Auto) 0.12 (0.04-0.36) K/mm3 Baso # (Auto) 0.03 (0.01-0.08) K/mm3 Manual Slide Review Normal smear Sodium 143 (136-145) mEq/L Potassium 4.1 (3.5-5.1) mEq/L Chloride 113 H (98-107) mEq/L Carbon Dioxide 18 L (21-32) mEq/L Anion Gap 16.1 H (5-15) BUN 16 (7-18) mg/dL Creatinine 0.8 (0.55-1.02) mg/dL Est Cr Clr Drug Dosing 46.55 mL/min Estimated GFR (MDRD) > 60 (>60) mL/min BUN/Creatinine Ratio 20.0 H (14-18) Glucose 79 (70-99) mg/dL Calcium 8.4 L (8.5-10.1) mg/dL Phosphorus 3.2 (2.6-4.7) mg/dL Magnesium 1.8 (1.8-2.4) mg/dL Result Diagrams: 11/12/21 05:57 11/12/21 05:57 Sepsis Event Note - Evaluation Sepsis Screening Result: No Definite Risk - Focused Exam Vital Signs: Vital Signs Temp Pulse Resp BP Pulse Ox 11/12/21 09:34 124/67 11/12/21 01:40 98.8 F 70 14 107/68 98 - Problem List Review Problem List Initiated/Reviewed/Updated: No - My Orders Last 24 Hours: My Active Orders 11/11/21 10:42 calcium polycarbophiL [Fibercon] 1,250 mg PO TID 11/12/21 10:30 Atropine/Diphenoxylate [Lomotil 0.025-2.5 MG] 1 tab PO Q8H 11/13/21 05:11 BASIC METABOLIC PANEL,BMP [CHEM] AM CBC WITH AUTO DIFF [HEME] AM MAGNESIUM [CHEM] AM PHOSPHORUS [CHEM] AM 11/14/21 05:11 BASIC METABOLIC PANEL,BMP [CHEM] AM MAGNESIUM [CHEM] AM PHOSPHORUS [CHEM] AM 11/15/21 05:11 BASIC METABOLIC PANEL,BMP [CHEM] AM MAGNESIUM [CHEM] AM PHOSPHORUS [CHEM] AM - Assessment Assessment:: HD2 for PIOTR due to severe dehydration secondary to high ileostomy output. She denies any illness or any recent antibiotics therapy. Her PIOTR has now resolved. Electrolytes are essentially normal. - Plan Plan:: She is now well hydrated but her colostomy output is still watery so she is prone to loosing a lot of fluid through that. We will try to reduce the output further. Plan - Encourage the patient to drink plenty of fluids, minimum 3L/day. can be any fl uids - Will stop IVF today - Increase fiber supplementation today - Will start Lomotil 2.5 mg TID today Will see how the patient does without IVF today and try to slow down colostomy output. If she can keep up with fluid losses, then she can be discharged tomorrow. She understands the plan.
[2021-11-12] MEDS: Loperamide 2 MG Cap PO SCH ×2 (13:37→18:24)
[2021-11-12] MEDS: Enoxaparin 40 MG/0.4 ML Syringe SUBCUT SCH (13:39)
[2021-11-12] MEDS: Simvastatin 40 MG Tab PO SCH (20:46)
[2021-11-12] MEDS: Latanoprost 0.005% Ophth Soln 2.5 ML Bottle EYEBOTH SCH (20:46)
[2021-11-13] MEDS: Loperamide 2 MG Cap PO SCH ×2 (00:05→05:21)
--- NOTE | 2021-11-13 08:03 | PCM.PN ---
- General Info Date of Service: 11/13/21 Admission Dx/Problem (Free Text): Admission Diagnosis/Problem Admission Diagnosis/Problem Dehydration Subjective Update: Patient is feeling well this AM. No nausea or vomiting. SHe was able to take close to 3L of PO yesterday. Colostomy output is now below 1L. Functional Status: Reports: Pain Controlled, Tolerating Diet, Ambulating, Urinating - Review of Systems General: Reports: No Symptoms HEENT: Reports: No Symptoms Pulmonary: Reports: No Symptoms Cardiovascular: Reports: No Symptoms Gastrointestinal: Reports: No Symptoms Genitourinary: Reports: No Symptoms - Patient Data Vitals - Most Recent: Last Vital Signs Temp 97.5 F 11/13/21 03:41 Pulse 66 11/13/21 03:41 Resp 16 11/13/21 03:41 BP 143/73 H 11/13/21 03:41 Pulse Ox 98 11/13/21 03:41 Weight - Most Recent: 65.136 kg I&O - Last 24 Hours: Intake & Output 11/12/21 11/13/21 11/13/21 22:59 06:59 14:59 Intake Total 1280 500 Output Total 850 1300 Balance 430 -800 Lab Results Last 24 Hours: Laboratory Results - last 24 hr 11/13/21 11/13/21 Range/Units 05:58 05:58 WBC 6.24 (3.98-10.04) K/mm3 RBC 3.88 L (3.98-5.22) M/mm3 Hgb 12.1 (11.2-15.7) gm/dl Hct 37.9 (34.1-44.9) % MCV 97.7 H (79.4-94.8) fl MCH 31.2 (25.6-32.2) pg MCHC 31.9 L (32.2-35.5) g/dl RDW Std Deviation 46.1 (36.4-46.3) fL Plt Count 85 L (182-369) K/mm3 MPV 10.0 (9.4-12.3) fl Neut % (Auto) 49.1 (34.0-71.1) % Lymph % (Auto) 36.5 (19.3-51.7) % [place] % (Auto) 10.7 (4.7-12.5) % Eos % (Auto) 3.0 (0.7-5.8) Baso % (Auto) 0.5 (0.1-1.2) % Neut # (Auto) 3.06 (1.56-6.13) K/mm3 Lymph # (Auto) 2.28 (1.18-3.74) K/mm3 [place] # (Auto) 0.67 H (0.24-0.36) K/mm3 Eos # (Auto) 0.19 (0.04-0.36) K/mm3 Baso # (Auto) 0.03 (0.01-0.08) K/mm3 Manual Slide Review Abnormal smear Sodium 140 (136-145) mEq/L Potassium 3.9 (3.5-5.1) mEq/L Chloride 109 H (98-107) mEq/L Carbon Dioxide 20 L (21-32) mEq/L Anion Gap 14.9 (5-15) BUN 7 (7-18) mg/dL Creatinine 0.7 (0.55-1.02) mg/dL Est Cr Clr Drug Dosing 53.21 mL/min Estimated GFR (MDRD) > 60 (>60) mL/min BUN/Creatinine Ratio 10.0 L (14-18) Glucose 83 (70-99) mg/dL Calcium 9.0 (8.5-10.1) mg/dL Phosphorus 3.4 (2.6-4.7) mg/dL Magnesium 1.7 L (1.8-2.4) mg/dL Med Orders - Current: Current Medications Acetaminophen (Acetaminophen 325 Mg Tab) 650 mg PO Q4H PRN PRN Reason: Pain (Mild 1-3)/fever Last Admin: 11/11/21 21:01 Dose: 650 mg Documented by: Al Hydroxide/Mg Hydroxide (Aluminum Hydroxide/Magnesium Hydroxide/Simethicone Susp 30 Ml Cup) 30 ml PO Q4H PRN PRN Reason: Heartburn Last Admin: 11/12/21 01:45 Dose: 30 ml Documented by: Aspirin (Aspirin 81 Mg Tab.Ec) 81 mg PO QAM [facility] Last Admin: 11/12/21 09:37 Dose: 81 mg Documented by: Calcium Polycarbophil (Calcium Polycarbophil 625 Mg Tab) 1,250 mg PO QID [facility] Last Admin: 11/12/21 20:46 Dose: 1,250 mg Documented by: Docusate Sodium (Docusate Sodium 100 Mg Cap) 100 mg PO BID PRN PRN Reason: Constipation Last Admin: 11/10/21 17:22 Dose: 100 mg Documented by: Enoxaparin Sodium (Enoxaparin 40 Mg/0.4 Ml Syringe) 40 mg SUBCUT DAILY [facility] Last Admin: 11/12/21 13:39 Dose: Not Given Documented by: Latanoprost (Latanoprost 0.005% Ophth Soln 2.5 Ml Bottle) 0 ml EYEBOTH BEDTIME [facility] Last Admin: 11/12/21 20:46 Dose: 1 drop Documented by: Loperamide HCl (Loperamide 2 Mg Cap) 2 mg PO Q6HR@0000,0600,1200,1800 [facility] Last Admin: 11/13/21 05:21 Dose: 2 mg Documented by: Losartan Potassium (Losartan 50 Mg Tab) 50 mg PO DAILY [facility] Last Admin: 11/12/21 09:34 Dose: 50 mg Documented by: Ondansetron HCl (Ondansetron 4 Mg Tab.Dis) 4 mg PO Q4H PRN PRN Reason: nausea, able to take PO Last Admin: 11/10/21 17:22 Dose: 4 mg Documented by: Simvastatin (Simvastatin 40 Mg Tab) 40 mg PO BEDTIME [facility] Last Admin: 11/12/21 20:46 Dose: 40 mg Documented by: Timolol Maleate (Timolol Maleate 0.25% Ophth Soln 5 Ml Bottle) 0 ml EYEBOTH QAM [facility] Last Admin: 11/12/21 09:00 Dose: 1 drop Documented by: Discontinued Medications Calcium Polycarbophil (Calcium Polycarbophil 625 Mg Tab) 1,250 mg PO TID [facility] Last Admin: 11/12/21 09:37 Dose: 1,250 mg Documented by: Diphenoxylate HCl/Atropine (Atropine/Diphenoxylate 0.025-2.5 Mg Tab) 1 tab PO Q8HR@0600,1400,2200 [facility] Sodium Chloride (Normal Saline) 1,000 mls @ 150 mls/hr IV ASDIRECTED [facility] Last Admin: 11/11/21 17:02 Dose: 150 mls/hr Documented by: Sodium Chloride (Normal Saline) 1,000 mls @ 500 mls/hr IV ASDIRECTED [facility] Stop: 11/14/21 16:34 Last Admin: 11/10/21 17:50 Dose: 500 mls/hr Documented by: Sodium Chloride (Normal Saline) 1,000 mls @ 125 mls/hr IV ASDIRECTED [facility] Last Admin: 11/12/21 09:34 Dose: 125 mls/hr Documented by: Non-Formulary Medication (Budesonide [Budesonide Ec]) 9 mg PO QAM [facility] - Exam General: Alert, Oriented, Cooperative Lungs: Normal Respiratory Effort Cardiovascular: Regular Rate, Regular Rhythm GI/Abdominal Exam: Soft, Non-Tender, No Distention, Other (Colostomy output is a little thickened, not watery) Skin: Warm, Dry, Intact - Patient Data Lab Results Last 24 hrs: Laboratory Results - last 24 hr 11/13/21 11/13/21 Range/Units 05:58 05:58 WBC 6.24 (3.98-10.04) K/mm3 RBC 3.88 L (3.98-5.22) M/mm3 Hgb 12.1 (11.2-15.7) gm/dl Hct 37.9 (34.1-44.9) % MCV 97.7 H (79.4-94.8) fl MCH 31.2 (25.6-32.2) pg MCHC 31.9 L (32.2-35.5) g/dl RDW Std Deviation 46.1 (36.4-46.3) fL Plt Count 85 L (182-369) K/mm3 MPV 10.0 (9.4-12.3) fl Neut % (Auto) 49.1 (34.0-71.1) % Lymph % (Auto) 36.5 (19.3-51.7) % [place] % (Auto) 10.7 (4.7-12.5) % Eos % (Auto) 3.0 (0.7-5.8) Baso % (Auto) 0.5 (0.1-1.2) % Neut # (Auto) 3.06 (1.56-6.13) K/mm3 Lymph # (Auto) 2.28 (1.18-3.74) K/mm3 [place] # (Auto) 0.67 H (0.24-0.36) K/mm3 Eos # (Auto) 0.19 (0.04-0.36) K/mm3 Baso # (Auto) 0.03 (0.01-0.08) K/mm3 Manual Slide Review Abnormal smear Sodium 140 (136-145) mEq/L Potassium 3.9 (3.5-5.1) mEq/L Chloride 109 H (98-107) mEq/L Carbon Dioxide 20 L (21-32) mEq/L Anion Gap 14.9 (5-15) BUN 7 (7-18) mg/dL Creatinine 0.7 (0.55-1.02) mg/dL Est Cr Clr Drug Dosing 53.21 mL/min Estimated GFR (MDRD) > 60 (>60) mL/min BUN/Creatinine Ratio 10.0 L (14-18) Glucose 83 (70-99) mg/dL Calcium 9.0 (8.5-10.1) mg/dL Phosphorus 3.4 (2.6-4.7) mg/dL Magnesium 1.7 L (1.8-2.4) mg/dL Result Diagrams: 11/13/21 05:58 11/13/21 05:58 Sepsis Event Note - Evaluation Sepsis Screening Result: No Definite Risk - Focused Exam Vital Signs: Vital Signs Temp Pulse Resp BP Pulse Ox 11/13/21 03:41 97.5 F 66 16 143/73 H 98 11/12/21 20:38 99.3 F 70 16 114/73 99 - Problem List Review Problem List Initiated/Reviewed/Updated: No - My Orders Last 24 Hours: My Active Orders 11/12/21 10:45 Loperamide [Imodium] 2 mg PO Q6HR@0000,0600,1200,1800 11/12/21 13:00 calcium polycarbophiL [Fibercon] 1,250 mg PO QID 11/14/21 05:11 BASIC METABOLIC PANEL,BMP [CHEM] AM MAGNESIUM [CHEM] AM PHOSPHORUS [CHEM] AM 11/15/21 05:11 BASIC METABOLIC PANEL,BMP [CHEM] AM MAGNESIUM [CHEM] AM PHOSPHORUS [CHEM] AM - Assessment Assessment:: HD3 for PIOTR due to severe dehydration secondary to high ileostomy output. She denies any illness or any recent antibiotics therapy. Her PIOTR has now resolved. Electrolytes are essentially normal. - Plan Plan:: She is now well hydrated. PIOTR resolved. Stool output is < 1L Plan - replete Mag today - will dc home today. patient will continue to take about 3L of fluids daily as she did in the past 24 hrs. Continue with current dose of imodium and fiber. Patient should follow up with me in clinic in 2-3 weeks. Pt understands the plan.
[2021-11-13] MEDS: Aspirin 81 MG Tab.EC PO SCH (08:17)
[2021-11-13] MEDS: Calcium Polycarbophil 625 MG Tab PO SCH (08:17)
[2021-11-13] MEDS: Timolol Maleate 0.25% Ophth Soln 5 ML Bottle EYEBOTH SCH (08:18)
[2021-11-13] MEDS ORDERED: Magnesium Oxide 400 MG Tab PO ONE (09:00)
[2021-11-13] MEDS: Losartan 50 MG Tab PO SCH (09:32)
[2021-11-13] MEDS: Enoxaparin 40 MG/0.4 ML Syringe SUBCUT SCH (12:24)
--- NOTE | 2021-11-13 13:46 | PCM.DCSUM1 ---
Discharge Summary - Hospital Course Free Text/Narrative:: Patient was admitted due to PIOTR secondary to severe dehydration likely secondary to increased colostomy output. She was rehydrated and her Piotr resolved. She was started on fiber and Imodium to control her colostomy output and encouraged to take adequate fluids to offset fluid losses. Patient verbalized understanding. She was discharged home in stable condition. She will follow up with me in clinic in 2-3 weeks. Diagnosis: Stroke: No - Discharge Data Discharge Date: 11/13/21 Discharge Disposition: Home, Self-Care 01 Condition: Good - Referral to Home Health Primary Care Physician: PCP Not In Area - Patient Instructions Diet: Heart Healthy Diet Activity: As Tolerated Driving: May Drive Today Showering/Bathing: May Shower Notify Provider of: Fever, Nausea and/or Vomiting Other/Special Instructions: - If stools become too thick or if you go 24 hrs without stool output, hold the imodium. - Discharge Plan *PRESCRIPTION DRUG MONITORING PROGRAM REVIEWED*: Not Applicable *COPY OF PRESCRIPTION DRUG MONITORING REPORT IN PATIENT CLAIR: Not Applicable Prescriptions/Med Rec: calcium polycarbophiL [Fibercon] 1,250 mg PO Q6H 90 Days #240 tablet Loperamide [Imodium] 2 mg PO Q6HR@0000,0600,1200,1800 90 Days #120 cap Home Medications: Home Meds Aspirin [Halfprin] 81 mg PO QAM 07/19/21 [History] Budesonide [Budesonide EC] 9 mg PO QAM 07/19/21 [History] Calcium Carbonate [Calcium] 500 mg PO QAM 07/19/21 [History] Cholecalciferol (Vitamin D3) [Vitamin D3] 6,000 units PO QAM 07/19/21 [History] Latanoprost 1 drop EYEBOTH QPM 07/19/21 [History] Olmesartan Medoxomil [Benicar] 20 mg PO QAM 07/19/21 [History] Simvastatin 40 mg PO QPM 07/19/21 [History] Timolol [Betimol 0.25% O/S 5 ML] 1 drop EYEBOTH QAM 07/19/21 [History] Vitamin B Complex 1 cap PO QAM 07/19/21 [History] Loperamide [Imodium] 2 mg PO Q6HR@0000,0600,1200,1800 90 Days #120 cap 11/13/21 [Rx] calcium polycarbophiL [Fibercon] 1,250 mg PO Q6H 90 Days #240 tablet 11/13/21 [Rx] Oxygen Therapy Mode: Room Air Patient Handouts: Colostomy Home Guide, Adult, Dehydration, Adult, [id number] Referrals: Moises Oviedo MD [Physician] - (At the end of November Please call to make appointment) - Discharge Summary/Plan Comment DC Time >30 min.: Yes Total # of Minutes for Discharge Time: 35 - General Info Date of Service: 11/13/21 Admission Dx/Problem (Free Text: Admission Diagnosis/Problem Admission Diagnosis/Problem Dehydration Subjective Update: Patient is feeling well this AM. No nausea or vomiting. SHe was able to take close to 3L of PO yesterday. Colostomy output is now below 1L. Functional Status: Reports: Pain Controlled, Tolerating Diet, Ambulating, Urinating - Review of Systems General: Reports: No Symptoms HEENT: Reports: No Symptoms Pulmonary: Reports: No Symptoms Cardiovascular: Reports: No Symptoms Gastrointestinal: Reports: No Symptoms Genitourinary: Reports: No Symptoms Musculoskeletal: Reports: No Symptoms - Patient Data Vitals - Most Recent: Last Vital Signs Temp 98.6 F 11/13/21 08:22 Pulse 62 11/13/21 08:22 Resp 14 11/13/21 08:22 BP 145/64 H 11/13/21 09:32 Pulse Ox 100 11/13/21 08:22 Weight - Most Recent: 64.864 kg I&O - Last 24 hours: Intake & Output 11/12/21 11/13/21 11/13/21 22:59 06:59 14:59 Intake Total 1455 500 Output Total 850 1300 Balance 605 -800 Lab Results - Last 24 hrs: Laboratory Results - last 24 hr 11/13/21 11/13/21 Range/Units 05:58 05:58 WBC 6.24 (3.98-10.04) K/mm3 RBC 3.88 L (3.98-5.22) M/mm3 Hgb 12.1 (11.2-15.7) gm/dl Hct 37.9 (34.1-44.9) % MCV 97.7 H (79.4-94.8) fl MCH 31.2 (25.6-32.2) pg MCHC 31.9 L (32.2-35.5) g/dl RDW Std Deviation 46.1 (36.4-46.3) fL Plt Count 85 L (182-369) K/mm3 MPV 10.0 (9.4-12.3) fl Neut % (Auto) 49.1 (34.0-71.1) % Lymph % (Auto) 36.5 (19.3-51.7) % Milam % (Auto) 10.7 (4.7-12.5) % Eos % (Auto) 3.0 (0.7-5.8) Baso % (Auto) 0.5 (0.1-1.2) % Neut # (Auto) 3.06 (1.56-6.13) K/mm3 Lymph # (Auto) 2.28 (1.18-3.74) K/mm3 Milam # (Auto) 0.67 H (0.24-0.36) K/mm3 Eos # (Auto) 0.19 (0.04-0.36) K/mm3 Baso # (Auto) 0.03 (0.01-0.08) K/mm3 Manual Slide Review Abnormal smear Sodium 140 (136-145) mEq/L Potassium 3.9 (3.5-5.1) mEq/L Chloride 109 H (98-107) mEq/L Carbon Dioxide 20 L (21-32) mEq/L Anion Gap 14.9 (5-15) BUN 7 (7-18) mg/dL Creatinine 0.7 (0.55-1.02) mg/dL Est Cr Clr Drug Dosing 53.21 mL/min Estimated GFR (MDRD) > 60 (>60) mL/min BUN/Creatinine Ratio 10.0 L (14-18) Glucose 83 (70-99) mg/dL Calcium 9.0 (8.5-10.1) mg/dL Phosphorus 3.4 (2.6-4.7) mg/dL Magnesium 1.7 L (1.8-2.4) mg/dL Med Orders - Current: Current Medications Acetaminophen (Acetaminophen 325 Mg Tab) 650 mg PO Q4H PRN PRN Reason: Pain (Mild 1-3)/fever Last Admin: 11/11/21 21:01 Dose: 650 mg Documented by: Al Hydroxide/Mg Hydroxide (Aluminum Hydroxide/Magnesium Hydroxide/Simethicone Susp 30 Ml Cup) 30 ml PO Q4H PRN PRN Reason: Heartburn Last Admin: 11/12/21 01:45 Dose: 30 ml Documented by: Aspirin (Aspirin 81 Mg Tab.Ec) 81 mg PO QAM [facility] Last Admin: 11/13/21 08:17 Dose: 81 mg Documented by: Calcium Polycarbophil (Calcium Polycarbophil 625 Mg Tab) 1,250 mg PO QID [facility] Last Admin: 11/13/21 08:17 Dose: 1,250 mg Documented by: Docusate Sodium (Docusate Sodium 100 Mg Cap) 100 mg PO BID PRN PRN Reason: Constipation Last Admin: 11/10/21 17:22 Dose: 100 mg Documented by: Enoxaparin Sodium (Enoxaparin 40 Mg/0.4 Ml Syringe) 40 mg SUBCUT DAILY [facility] Last Admin: 11/13/21 12:24 Dose: Not Given Documented by: Latanoprost (Latanoprost 0.005% Ophth Soln 2.5 Ml Bottle) 0 ml EYEBOTH BEDTIME [facility] Last Admin: 11/12/21 20:46 Dose: 1 drop Documented by: Loperamide HCl (Loperamide 2 Mg Cap) 2 mg PO Q6HR@0000,0600,1200,1800 [facility] Last Admin: 11/13/21 05:21 Dose: 2 mg Documented by: Losartan Potassium (Losartan 50 Mg Tab) 50 mg PO DAILY [facility] Last Admin: 11/13/21 09:32 Dose: 50 mg Documented by: Ondansetron HCl (Ondansetron 4 Mg Tab.Dis) 4 mg PO Q4H PRN PRN Reason: nausea, able to take PO Last Admin: 11/10/21 17:22 Dose: 4 mg Documented by: Simvastatin (Simvastatin 40 Mg Tab) 40 mg PO BEDTIME [facility] Last Admin: 11/12/21 20:46 Dose: 40 mg Documented by: Timolol Maleate (Timolol Maleate 0.25% Ophth Soln 5 Ml Bottle) 0 ml EYEBOTH QAM [facility] Last Admin: 11/13/21 08:18 Dose: 1 drop Documented by: Discontinued Medications Calcium Polycarbophil (Calcium Polycarbophil 625 Mg Tab) 1,250 mg PO TID [facility] Last Admin: 11/12/21 09:37 Dose: 1,250 mg Documented by: Diphenoxylate HCl/Atropine (Atropine/Diphenoxylate 0.025-2.5 Mg Tab) 1 tab PO Q8HR@0600,1400,2200 [facility] Sodium Chloride (Normal Saline) 1,000 mls @ 150 mls/hr IV ASDIRECTED [facility] Last Admin: 11/11/21 17:02 Dose: 150 mls/hr Documented by: Sodium Chloride (Normal Saline) 1,000 mls @ 500 mls/hr IV ASDIRECTED [facility] Stop: 11/14/21 16:34 Last Admin: 11/10/21 17:50 Dose: 500 mls/hr Documented by: Sodium Chloride (Normal Saline) 1,000 mls @ 125 mls/hr IV ASDIRECTED [facility] Last Admin: 11/12/21 09:34 Dose: 125 mls/hr Documented by: Magnesium Oxide (Magnesium Oxide 400 Mg Tab) 800 mg PO ONETIME ONE Stop: 11/13/21 09:01 Last Admin: 11/13/21 08:17 Dose: 800 mg Documented by: Non-Formulary Medication (Budesonide [Budesonide Ec]) 9 mg PO QAM [facility] - Exam General: Reports: Alert, Oriented, Cooperative Lungs: Reports: Normal Respiratory Effort Cardiovascular: Reports: Regular Rate, Regular Rhythm GI/Abdominal Exam: Soft, Non-Tender, No Distention, Other (colostomy output is loose but not watery)
== END 2021-11-13 13:10 | disposition home or self-care (01) | DRG 641 ==
LOC: JD.MS 15:32 → OBSVTOIN 16:18 → JD.OB 11-11 16:55 → JD.MS 11-13 13:05 → UNDODISIN 11-13 13:10
PROVIDERS: ADMIT Surgery; ATTEND Surgery
DX: E86.0 Dehydration (principal); N17.9 Acute kidney failure, unspecified; H40.9 Unspecified glaucoma; K57.90 Diverticulosis of intestine, part unspecified, without perforation or abscess without bleeding; F32.A Depression, unspecified; Z20.822 Contact with and (suspected) exposure to COVID-19; Z98.49 Cataract extraction status, unspecified eye; Z79.82 Long term (current) use of aspirin; Z79.899 Other long term (current) drug therapy; Z93.3 Colostomy status; Z88.1 Allergy status to other antibiotic agents; Z88.0 Allergy status to penicillin; Z98.51 Tubal ligation status; Z87.891 Personal history of nicotine dependence
CPT/HCPCS: 36415; 80048; 83735; 84100; 85025; A9270-GY; J1650; J7030; U0002

== ENCOUNTER 2021-12-18 08:47 | Day surgery (SDC) | payer MEDICARE, BC ==
[~2021-12-18 08:47] MED LIST: Lactated Ringers 1,000 ML IV SCH; Lidocaine 1%/Sod Bicarbonate in NS 8.4% 1 ML Syringe IDERM PRN; Midazolam 1 MG/ML 2 ML SDV ONE; Propofol 200 MG/20 ML SDV ONE; Sodium Chloride 0.9% 10 ML Syringe FLUSH PRN; Sodium Chloride 0.9% 10 ML Syringe FLUSH SCH; fentaNYL 100 MCG/2 ML SDV ONE
[2021-12-18] MEDS ORDERED: Propofol 200 MG/20 ML SDV ONE (09:02)
== END 2021-12-18 10:09 | disposition home or self-care (01) ==
LOC: JD.SDS 08:47
PROVIDERS: ATTEND Surgery
DX: Z43.3 Encounter for attention to colostomy (principal); K57.30 Diverticulosis of large intestine without perforation or abscess without bleeding; K62.89 Other specified diseases of anus and rectum; E78.5 Hyperlipidemia, unspecified; I10 Essential (primary) hypertension; Z98.890 Other specified postprocedural states; Z79.899 Other long term (current) drug therapy; Z88.0 Allergy status to penicillin; Z88.2 Allergy status to sulfonamides; Z88.8 Allergy status to other drugs, medicaments and biological substances; Z87.891 Personal history of nicotine dependence
CPT/HCPCS: 00811; 99100; J2250; J2704; J3010; J7120

== ENCOUNTER 2022-01-29 07:55 | Inpatient (IN) | payer MEDICARE, BC ==
[~2022-01-29 07:55] MED LIST changes: -Midazolam 1 MG/ML 2 ML SDV ONE; -Propofol 200 MG/20 ML SDV ONE; -Sodium Chloride 0.9% 10 ML Syringe FLUSH SCH; -fentaNYL 100 MCG/2 ML SDV ONE
[2022-01-29] MEDS ORDERED: Bupivacaine 0.5%/EPINEPHrine 1:200,000 50 ML MDV ONE (08:15)
[2022-01-29] MEDS ORDERED: Midazolam 1 MG/ML 2 ML SDV ONE (10:17)
[2022-01-29] MEDS ORDERED: fentaNYL 250 MCG/5 ML SDV ONE (10:17)
[2022-01-29] MEDS ORDERED: Rocuronium 50 MG/5 ML Vial ONE ×2 (10:18→12:44)
[2022-01-29] MEDS ORDERED: Lidocaine 1% 4 ML ONE (10:18)
[2022-01-29] MEDS ORDERED: Propofol 200 MG/20 ML SDV ONE (10:18)
[2022-01-29] MEDS ORDERED: ceFAZolin 1 GM Vial ONE (11:00)
[2022-01-29] MEDS ORDERED: Lidocaine 1% with EPINEPHrine 1:100,000 10 ML MDV ONE (11:51)
[2022-01-29] MEDS ORDERED: metroNIDAZOLE/Normal Saline 500 MG in Premix Bag 1 BAG IV ONE (12:00)
[2022-01-29] MEDS ORDERED: Levofloxacin/Dextrose 5%-Water 750 MG in Premix Bag 1 BAG IV ONE (12:00)
[2022-01-29] MEDS ORDERED: Lactated Ringers 1,000 ML ONE ×3 (12:09→15:40)
[2022-01-29] MEDS ORDERED: HYDROmorphone 0.5 MG/0.5 ML Syringe ONE ×3 (12:24→14:40)
[2022-01-29] MEDS ORDERED: fentaNYL 100 MCG/2 ML SDV ONE ×3 (12:28→14:30)
[2022-01-29] MEDS ORDERED: Ketorolac 30 MG/ML SDV ONE (15:35)
[2022-01-29] MEDS ORDERED: Ondansetron 4 MG/2 ML SDV ONE (16:19)
[2022-01-29] MEDS ORDERED: Ondansetron 4 MG/2 ML SDV IVPUSH PRN ×2 (16:36→17:34)
[2022-01-29] MEDS ORDERED: HYDROmorphone 0.5 MG/0.5 ML Syringe IVPUSH PRN (16:36)
[2022-01-29] MEDS ORDERED: fentaNYL 100 MCG/2 ML SDV IVPUSH PRN (16:36)
[2022-01-29] MEDS: Sodium Chloride 0.9% 10 ML Syringe FLUSH SCH (17:31)
[2022-01-29] MEDS ORDERED: hydrOXYzine HCl 25 MG/ML SDV IM PRN (17:34)
[2022-01-29] MEDS: Acetaminophen 325 MG Tab PO SCH (18:12)
[2022-01-29] MEDS: Lactated Ringers 1,000 ML IV SCH (18:12)
[2022-01-29] MEDS: Gabapentin 100 MG Cap PO SCH (20:55)
[2022-01-29] MEDS: metroNIDAZOLE/Normal Saline 500 MG in Premix Bag 1 BAG IV SCH (21:12)
[2022-01-30] MEDS: Lactated Ringers 1,000 ML IV SCH ×3 (00:07→16:59)
[2022-01-30] MEDS: Acetaminophen 325 MG Tab PO SCH ×4 (00:09→17:00)
[2022-01-30] MEDS: Acetaminophen/HYDROcodone 325-5 MG Tab PO PRN ×5 (03:00→20:27)
[2022-01-30] MEDS: metroNIDAZOLE/Normal Saline 500 MG in Premix Bag 1 BAG IV SCH ×2 (05:14→11:58)
[2022-01-30] MEDS: Pantoprazole 40 MG Tab.CR PO SCH (06:03)
[2022-01-30] MEDS ORDERED: Timolol Maleate 0.25% Ophth Soln 5 ML Bottle EYEBOTH SCH (08:00)
[2022-01-30] MEDS ORDERED: Enoxaparin 40 MG/0.4 ML Syringe SUBCUT SCH (09:00)
[2022-01-30] MEDS ORDERED: Simvastatin 40 MG Tab PO SCH (09:00)
[2022-01-30] MEDS: Gabapentin 100 MG Cap PO SCH ×3 (09:15→20:27)
[2022-01-30] MEDS: Aspirin 81 MG Tab.EC PO SCH (09:15)
[2022-01-30] MEDS: atorvaSTATin 20 MG Tab PO SCH (09:15)
[2022-01-30] MEDS: Timolol Maleate 0.5% Ophth Soln 5 ML Bottle EYEBOTH SCH (09:16)
[2022-01-30] MEDS ORDERED: Lactated Ringers 1,000 ML IV SCH (16:45)
[2022-01-30] MEDS: Latanoprost 0.005% Ophth Soln 2.5 ML Bottle EYEBOTH SCH (20:28)
[2022-01-31] MEDS: Acetaminophen/HYDROcodone 325-5 MG Tab PO PRN ×6 (00:36→22:59)
[2022-01-31] MEDS: Acetaminophen 325 MG Tab PO SCH ×2 (03:32→06:58)
[2022-01-31] MEDS: Lactated Ringers 1,000 ML IV SCH ×3 (05:39→21:19)
[2022-01-31] MEDS: Pantoprazole 40 MG Tab.CR PO SCH (05:39)
[2022-01-31] MEDS: Gabapentin 100 MG Cap PO SCH ×3 (09:39→20:19)
[2022-01-31] MEDS: atorvaSTATin 20 MG Tab PO SCH (09:39)
[2022-01-31] MEDS: Acetaminophen 325 MG Tab PO PRN ×2 (09:40→16:46)
[2022-01-31] MEDS: Timolol Maleate 0.5% Ophth Soln 5 ML Bottle EYEBOTH SCH (09:44)
[2022-01-31] MEDS: Potassium Chloride 10 MEQ in Premix Bag 1 BAG IV SCH ×4 (09:44→14:42)
[2022-01-31] MEDS: Polyethylene Glycol 3350 Powder 17 GM Packet PO SCH (09:44)
[2022-01-31] MEDS: Aspirin 81 MG Tab.EC PO SCH (10:12)
[2022-01-31] MEDS ORDERED: Levofloxacin/Dextrose 5%-Water 750 MG in Premix Bag 1 BAG IV SCH (12:00)
[2022-01-31] MEDS: Latanoprost 0.005% Ophth Soln 2.5 ML Bottle EYEBOTH SCH (20:21)
[2022-02-01] MEDS: Acetaminophen/HYDROcodone 325-5 MG Tab PO PRN ×4 (04:00→18:00)
[2022-02-01] MEDS: Pantoprazole 40 MG Tab.CR PO SCH (06:20)
[2022-02-01] MEDS ORDERED: Aspirin 81 MG Tab.EC PO SCH (08:00)
[2022-02-01] MEDS: Gabapentin 100 MG Cap PO SCH ×3 (08:36→20:30)
[2022-02-01] MEDS: atorvaSTATin 20 MG Tab PO SCH (08:37)
[2022-02-01] MEDS: Timolol Maleate 0.5% Ophth Soln 5 ML Bottle EYEBOTH SCH (08:40)
[2022-02-01] MEDS: Polyethylene Glycol 3350 Powder 17 GM Packet PO SCH (08:40)
[2022-02-01] MEDS ORDERED: Enoxaparin 40 MG/0.4 ML Syringe SUBCUT SCH (09:00)
[2022-02-01] MEDS: HYDROmorphone 0.5 MG/0.5 ML Syringe IVPUSH PRN ×3 (10:16→23:37)
[2022-02-01] MEDS: Losartan 50 MG Tab PO SCH (12:37)
[2022-02-01] MEDS ORDERED: Lactated Ringers 1,000 ML IV ONE (17:30)
[2022-02-01] MEDS: Latanoprost 0.005% Ophth Soln 2.5 ML Bottle EYEBOTH SCH (20:29)
[2022-02-02] MEDS: Pantoprazole 40 MG Tab.CR PO SCH (05:04)
[2022-02-02] MEDS: Acetaminophen/HYDROcodone 325-5 MG Tab PO PRN ×4 (05:05→22:16)
[2022-02-02] MEDS ORDERED: Lactated Ringers 1,000 ML ONE (07:58)
[2022-02-02] MEDS: Lactated Ringers 1,000 ML IV SCH ×3 (08:05→21:26)
[2022-02-02] MEDS ORDERED: Midazolam 1 MG/ML 2 ML SDV ONE (08:06)
[2022-02-02] MEDS ORDERED: Propofol 200 MG/20 ML SDV ONE (08:06)
[2022-02-02] MEDS ORDERED: fentaNYL 250 MCG/5 ML SDV ONE (08:06)
[2022-02-02] MEDS ORDERED: Ondansetron 4 MG/2 ML SDV ONE (08:09)
[2022-02-02] MEDS ORDERED: Lidocaine 1% 4 ML ONE (08:09)
[2022-02-02] MEDS ORDERED: Dexamethasone 4 MG/ML 5 ML MDV ONE (08:09)
[2022-02-02] MEDS ORDERED: Rocuronium 50 MG/5 ML Vial ONE (08:13)
[2022-02-02] MEDS ORDERED: ePHEDrine 50 MG/ML SDV ONE (09:07)
[2022-02-02] MEDS ORDERED: Ondansetron 4 MG/2 ML SDV IVPUSH PRN (10:17)
[2022-02-02] MEDS ORDERED: fentaNYL 100 MCG/2 ML SDV IVPUSH PRN (10:17)
[2022-02-02] MEDS: HYDROmorphone 0.5 MG/0.5 ML Syringe IVPUSH PRN ×5 (10:30→23:42)
[2022-02-02] MEDS: Levofloxacin/Dextrose 5%-Water 750 MG in Premix Bag 1 BAG IV SCH (12:36)
[2022-02-02] MEDS: Losartan 50 MG Tab PO SCH (12:37)
[2022-02-02] MEDS: Timolol Maleate 0.5% Ophth Soln 5 ML Bottle EYEBOTH SCH (12:38)
[2022-02-02] MEDS: atorvaSTATin 20 MG Tab PO SCH (13:12)
[2022-02-02] MEDS: Magnesium Oxide 400 MG Tab PO SCH (13:12)
[2022-02-02] MEDS: Gabapentin 100 MG Cap PO SCH ×3 (14:31→20:12)
[2022-02-02] MEDS: Latanoprost 0.005% Ophth Soln 2.5 ML Bottle EYEBOTH SCH (20:39)
[2022-02-03] MEDS: Acetaminophen/HYDROcodone 325-5 MG Tab PO PRN ×5 (02:28→20:09)
[2022-02-03] MEDS: HYDROmorphone 0.5 MG/0.5 ML Syringe IVPUSH PRN ×5 (03:45→22:05)
[2022-02-03] MEDS: Pantoprazole 40 MG Tab.CR PO SCH (06:30)
[2022-02-03] MEDS: Lactated Ringers 1,000 ML IV SCH (07:35)
[2022-02-03] MEDS: Levofloxacin/Dextrose 5%-Water 750 MG in Premix Bag 1 BAG IV SCH (08:41)
[2022-02-03] MEDS: atorvaSTATin 20 MG Tab PO SCH (08:43)
[2022-02-03] MEDS: Losartan 50 MG Tab PO SCH (08:43)
[2022-02-03] MEDS: Timolol Maleate 0.5% Ophth Soln 5 ML Bottle EYEBOTH SCH (08:43)
[2022-02-03] MEDS: Magnesium Oxide 400 MG Tab PO SCH (08:43)
[2022-02-03] MEDS: Gabapentin 100 MG Cap PO SCH ×3 (08:46→20:09)
[2022-02-03] MEDS: Latanoprost 0.005% Ophth Soln 2.5 ML Bottle EYEBOTH SCH (20:15)
[2022-02-04] MEDS: Acetaminophen/HYDROcodone 325-5 MG Tab PO PRN ×5 (01:10→18:21)
[2022-02-04] MEDS: Pantoprazole 40 MG Tab.CR PO SCH (05:16)
[2022-02-04] MEDS: Levofloxacin/Dextrose 5%-Water 750 MG in Premix Bag 1 BAG IV SCH (08:22)
[2022-02-04] MEDS: Magnesium Oxide 400 MG Tab PO SCH (08:25)
[2022-02-04] MEDS: atorvaSTATin 20 MG Tab PO SCH (08:25)
[2022-02-04] MEDS: Gabapentin 100 MG Cap PO SCH ×3 (08:25→21:08)
[2022-02-04] MEDS: Losartan 50 MG Tab PO SCH (08:26)
[2022-02-04] MEDS: Timolol Maleate 0.5% Ophth Soln 5 ML Bottle EYEBOTH SCH (08:28)
[2022-02-04] MEDS: Acetaminophen 325 MG Tab PO PRN (12:16)
[2022-02-04] MEDS: HYDROmorphone 0.5 MG/0.5 ML Syringe IVPUSH PRN ×3 (12:16→21:09)
[2022-02-04] MEDS: Latanoprost 0.005% Ophth Soln 2.5 ML Bottle EYEBOTH SCH (21:08)
[2022-02-05] MEDS: Acetaminophen/HYDROcodone 325-5 MG Tab PO PRN ×4 (03:42→20:46)
[2022-02-05] MEDS: Pantoprazole 40 MG Tab.CR PO SCH (06:43)
[2022-02-05] MEDS: HYDROmorphone 0.5 MG/0.5 ML Syringe IVPUSH PRN ×2 (06:48→22:51)
[2022-02-05] MEDS: Timolol Maleate 0.5% Ophth Soln 5 ML Bottle EYEBOTH SCH (09:13)
[2022-02-05] MEDS: Gabapentin 100 MG Cap PO SCH ×3 (09:13→20:46)
[2022-02-05] MEDS: Magnesium Oxide 400 MG Tab PO SCH (09:13)
[2022-02-05] MEDS: atorvaSTATin 20 MG Tab PO SCH (09:13)
[2022-02-05] MEDS: Losartan 50 MG Tab PO SCH (09:13)
[2022-02-05] MEDS: Latanoprost 0.005% Ophth Soln 2.5 ML Bottle EYEBOTH SCH (20:46)
[2022-02-06] MEDS: HYDROmorphone 0.5 MG/0.5 ML Syringe IVPUSH PRN (03:56)
[2022-02-06] MEDS: Pantoprazole 40 MG Tab.CR PO SCH (05:59)
[2022-02-06] MEDS: Magnesium Oxide 400 MG Tab PO SCH (08:26)
[2022-02-06] MEDS: Losartan 50 MG Tab PO SCH (08:26)
[2022-02-06] MEDS: Timolol Maleate 0.5% Ophth Soln 5 ML Bottle EYEBOTH SCH (08:27)
[2022-02-06] MEDS: Gabapentin 100 MG Cap PO SCH ×2 (08:27→14:43)
[2022-02-06] MEDS: atorvaSTATin 20 MG Tab PO SCH (08:27)
[2022-02-06] MEDS: Acetaminophen/HYDROcodone 325-5 MG Tab PO PRN ×2 (08:35→14:43)
== END 2022-02-06 16:52 | disposition home or self-care (01) | DRG 330 ==
LOC: JD.MS 07:55
PROVIDERS: ADMIT Surgery; ATTEND Surgery
PROC: 0WQF4ZZ Repair Abdominal Wall, Percutaneous Endoscopic Approach (ICD-10-PCS; principal; 2022-01-29)
PROC: 0DBN4ZZ Excision of Sigmoid Colon, Percutaneous Endoscopic Approach (ICD-10-PCS; 2022-01-29)
PROC: 0DNU4ZZ Release Omentum, Percutaneous Endoscopic Approach (ICD-10-PCS; 2022-01-29)
PROC: 0DBP4ZZ Excision of Rectum, Percutaneous Endoscopic Approach (ICD-10-PCS; 2022-01-29)
PROC: 0DJD8ZZ Inspection of Lower Intestinal Tract, Via Natural or Artificial Opening Endoscopic (ICD-10-PCS; 2022-01-29)
PROC: 0JQ80ZZ Repair Abdomen Subcutaneous Tissue and Fascia, Open Approach (ICD-10-PCS; 2022-02-02)
DX: Z43.3 Encounter for attention to colostomy (principal); T81.31XA Disruption of external operation (surgical) wound, not elsewhere classified, initial encounter; E78.00 Pure hypercholesterolemia, unspecified; K57.90 Diverticulosis of intestine, part unspecified, without perforation or abscess without bleeding; F32.A Depression, unspecified; Z20.822 Contact with and (suspected) exposure to COVID-19; D64.9 Anemia, unspecified; I10 Essential (primary) hypertension; R33.9 Retention of urine, unspecified; E78.5 Hyperlipidemia, unspecified; Z87.891 Personal history of nicotine dependence; Z88.0 Allergy status to penicillin; Z79.899 Other long term (current) drug therapy; Z79.82 Long term (current) use of aspirin
CPT/HCPCS: 00400; 00790; 36415; 51701; 51702; 51798; 80048; 85025; 86900; 86901; 88304; 88307; 94761; 99100; 99140; A9270-GY; J0690; J1100; J1170; J1650; J1885; J1956; J2250; J2370; J2405; J2704; J2710; J3010; J3480; J3490; J7030; J7120; Q4130; U0002